=== PATIENT | male | born 1945 | race Asian ===

== ENCOUNTER 2017-01-12 22:32 | Inpatient (IN) ==
[2017-01-13] MEDS ORDERED: ONDANSETRON 4 MG/2 ML VIAL ONE ×2 (00:16→10:25)
[2017-01-13] MEDS ORDERED: HYDROmorphone 2 MG/1 ML VIAL IV STA (00:19)
[2017-01-13] MEDS ORDERED: PANTOPRAZOLE 40 MG VIAL IV STA (00:19)
[2017-01-13] MEDS ORDERED: ONDANSETRON 4 MG/2 ML VIAL IV STA (00:19)
[2017-01-13] MEDS ORDERED: SODIUM CHLORIDE 0.9% 1,000 ML IV STA (00:19)
[2017-01-13 00:28] LABS: Basophils % 0.3 % (0.0-0.8); Eosinophils # 0.2 10*3/uL (0.0-0.87); Eosinophils % 1.5 % (0.00-10.9); Hematocrit 44.3 VOL% (42.0-52.0); Hemoglobin 14.5 GM/DL (14.0-18.0); Immature Granulocytes % 0.4 %; Immature Granulocytes Absolute 0.05 #; Lymphocytes # 3.2 10*3/uL (1.4-4.0); Mean Corpuscular HGB Conc 32.7 GM/DL (32-36); Mean Corpuscular Hemoglobin 30 PG (27-34); Mean Corpuscular Volume 92.1 FL (87-102); Mean Platelet Volume 9.4 FL (9.6-12.0); Monocytes # 0.7 10*3/uL (0.11-0.8); Monocytes % 5.4 % (1.7-12.7); Neutrophils # 8.1 10*3/uL (1.4-7.4); Neutrophils % 66.4 % (38.7-73.9); Platelet Count 248 T/CUMM (130-400); Red Blood Count 4.81 MC/CUMM (3.8-5.5); Red Cell Distribution Width 13.5 % (9.3-17.3); White Blood Count 12.2 T/CUMM (4-12)
[2017-01-13 00:53] LABS: Albumin 3.9 G/DL (3.4-5.0); Bilirubin,Total 0.4 MG/DL (0.2-1.0); Calcium 8.7 MG/DL (8.5-10.1); Potassium 4.5 MMOL/L (3.5-5.1); Total Protein 7.6 G/DL (6.4-8.3); Troponin I Only 0.023 NG/ML (0.00-0.045)
--- NOTE | 2017-01-13 00:57 | Emergency Department Note ---
Margaret Merritt [place], am scribing for, and in the presence of, Javier Ray MD 00:41. Cory Merritt Charles R, MD, personally performed the services described in this documentation, ascribed by Willian Robles in my presence, and it is both accurate and complete . Arrival - Arrival Chief Complaint: Abdominal / Flank Pain Stated Complaint: Vomiting,unable to keep food down,stomach pain ED Nursing Triage Note: PT STATES THAT HE HAS BEEN VOMITING AND NAUSEATED SINCE YESTERDAY. STATES THAT HE HAS INCREASING ABD PAIN WELL. LAST NORMAL BM WAS TODAY. DENIES ANY FEVER OR URINARY S/S. PT COMPLAINS OF UMBILICAL PAIN AT TIME OF TRIAGE. STATES THAT IT ALSO DOES HURT IN LOWER ABD WELL. Mode of Arrival: Ambulatory Limitations: No Limitations Source: Patient Time Seen by Provider: 01/12/17 23:57 - History of Present Illness HPI Narrative: Pt is a 71 y/o male presenting to the ED with c/o nausea, vomiting, diarrhea that onset yesterday. Pt has some mild umbilical tenderness. Pt's has a PMHx of diverticulitis, heart bypass, thyroid disorder and diabetes. Pt states his bowel movements were dark in color and has not passed gas. He denies fever, chills, back pain, diaphoresis, DEJESUS, vision change, and urinary symptoms. Consistency: constant Severity: moderate Allergies/Adverse Reactions: Allergies Allergy/AdvReac Type Severity Reaction Status Date / Time No Known Allergies Allergy Verified 01/12/17 22:42 Review of System - Review of System 12 point system: reviewed and no additional remarkable complaints except as stated - Review of System Constitutional: Absent: chills, fever, weakness Eyes: Absent: vision change Head/Ears/Nose/Throat: Absent: earache, nasal drainage Respiratory: Absent: cough, respiratory distress, wheezing Cardiovascular: Absent: chest pain Gastrointestinal: Present: abdominal pain, nausea, vomiting, diarrhea Genitourinary male: Absent: dysuria Musculoskeletal: Absent: arm pain, back pain, neck pain Skin: Absent: rash Neurological: Absent: headache, weakness, confusion, abnormal gait, vertigo Psychiatric: Absent: anxiety Endocrine: Absent: fatigue Hematological/Lymphatic: Absent: easy bleeding Allergic/Immunologic: Absent: facial swelling Medical,Surgical,& Family Hx - Medical History Endocrine: History of: Diabetes Mellitus (NIDDM), Dyslipidemia, Thyroid Disorder Gastrointestinal: History of: Diverticulitis/ Diverticulosis - Surgical History Cardiac Surgeries: Sugical HX of: Femoral-Popliteal Bypass Graft, Cardiac Catheterization - Social History Smoking Status: Never smoker Frequency of Alcohol Use: None Type of Drug Use: None Exam Vital Signs: Vital Signs Temperature 98.5 F 01/12/17 22:42 Pulse Rate 82 01/12/17 22:42 Respiratory Rate 20 01/12/17 22:42 Blood Pressure 182/93 01/12/17 22:42 O2 Sat by Pulse Oximetry 98 01/12/17 22:42 - General General appearance: alert, in no apparent distress - Head Head exam: Present: atraumatic, normocephalic, normal inspection - Eye Eye exam: Present: normal appearance, PERRL, EOMI - ENT ENT exam: Present: normal exam, normal oropharynx, mucous membranes moist, TM's normal bilaterally, normal external ear exam - Neck Neck exam: Present: normal inspection, full ROM, trachea midline. Absent: tenderness - Chest Chest inspection: Present: normal inspection, symmetric chest wall rise - Respiratory Respiratory exam: Present: normal lung sounds bilaterally - Cardiovascular Cardiovascular exam: Present: regular rate, normal rhythm, normal heart sounds - Abdominal Exam Abdominal exam: Present: soft, tenderness (paraumbilicus tenderness), hypoactive bowel sounds. Absent: distention, normal bowel sounds - Rectal Exam Rectal exam: Present: heme (-) stool - Extremities Exam Extremities exam: Present: normal inspection, full ROM, normal capillary refill. Absent: tenderness, pedal edema, calf tenderness - Back Exam Back exam: Present: normal inspection, full ROM. Absent: tenderness - Neurological Exam Neurological exam: Present: alert, oriented X3, CN II-XII intact, normal gait, reflexes normal. Absent: motor sensory deficit - Psychiatric Psychiatric exam: Present: normal affect, normal mood - Skin Skin exam: Present: warm, dry, intact, normal color. Absent: rash, diaphoresis Course - Consultations Consultation #1: Dr. Gottlieb will admit patient Time: 02:11 Results - Labs CBC & BMP: 01/13/17 00:00 01/13/17 00:00 Lab Results: I have reviewed the patients labs Disposition Clinical Impression: Acute appendicitis, Abdominal pain Case discussed with: patient, patient's family Disposition: Still a Patient Condition: Stable Time of Disposition: :11
[2017-01-13] MEDS ORDERED: PANTOPRAZOLE 40 MG VIAL IV ONE (00:58)
[2017-01-13] MEDS ORDERED: HYDROmorphone 2 MG/1 ML VIAL ONE (00:58)
[2017-01-13 01:59] LABS: Apearance,Urine CLEAR (Clear); Bilirubin,Urine Negative (Negative); Blood, Urine Moderate mg/dL (Negative); Glucose,Urine (UA) Negative (Negative); Ketones,Urine 20 mg/dL (Negative); Mucus,Urine Occasional /LPF (Occasional); Nitrite,Urine Negative (Negative); Protein,Urine 100 MG/DL; RBC,Urine 27 /HPF (0-4); Urine Color Yellow (Yellow); Urine Specific Gravity 1.048 (1.001-1.035); Urine Urobilinogen < 2.0 EU/DL (0.2-1.0)
[2017-01-13 02:00] LABS: Lactic Acid 2.2 MMOL/L (0.4-2.0)
[2017-01-13] MEDS ORDERED: ONDANSETRON 4 MG/2 ML VIAL IV PRN (03:21)
[2017-01-13] MEDS ORDERED: DEXTROSE 50% 25 GM/50 ML VIAL IV PRN (03:21)
[2017-01-13] MEDS ORDERED: GLUCAGON 1 MG VIAL IM PRN (03:21)
[2017-01-13] MEDS ORDERED: ACETAMINOPHEN 325 MG TABLET PO PRN (03:21)
[2017-01-13] MEDS ORDERED: HYDROmorphone 2 MG/1 ML VIAL IV PRN (03:21)
[2017-01-13] MEDS: SODIUM CHLORIDE 0.9% 1,000 ML IV SCH ×3 (03:25→21:12)
[2017-01-13] MEDS: PIPERACILLIN/TAZOBACTAM 3,375 MG in SODIUM CHLORIDE 0.9% 100 ML IV SCH ×3 (05:17→21:13)
--- NOTE | 2017-01-13 07:44 | CT Report ---
CT abdomen pelvis w con Indication: Midline abdominal/pelvic pain Comparison: Prior CT abdomen and pelvis 04/13/2014. Technique: CT of the abdomen and pelvis was performed following administration of intravenous contrast. Coronal and sagittal reformatted images were additionally created and submitted for review. The total DLP is 377 mGy*cm. Findings: Very minimal posterior basilar dependent atelectatic changes are noted bilaterally. Lung bases are otherwise clear. There is no pleural or pericardial effusion. ABDOMEN: Liver/Gallbladder: No abnormal enhancing hepatic lesions are identified. There is no biliary ductal dilatation. There has been a prior cholecystectomy. The portal vein is patent. Spleen: No acute findings. Pancreas: Adjacent to the pancreatic head and within the pancreaticoduodenal groove, there is haziness of the pancreatic fat/periduodenal fat and may represent a focal inflammatory change such as pancreatitis or duodenitis. The pancreatic duct is not dilated. Adrenals: Within normal limits in appearance. Kidneys: Both kidneys enhance symmetrically with symmetric excretion on delayed images. On the initial images, there are 2 areas of focal hyperdensity within the left renal collecting system likely representing stones measuring 8-9 mm in size. Bowel/mesentery: In the right lower quadrant, the appendix is top normal in size measuring 7 mm diameter. There is minimal enhancement of the appendix mucosa/wall but there is no significant periappendiceal fat stranding or free fluid at this time. Small bowel is nondilated. There is no free fluid/air within the abdomen. There is no mesenteric adenopathy. A few scattered distal colon diverticula are noted. There is no CT evidence of acute diverticulitis. Retroperitoneum: No evidence of aortic aneurysm or significant retroperitoneal adenopathy. Distal aorta demonstrates circumferential atherosclerotic plaque with mild luminal narrowing evident (Luminal stenosis of 50%). PELVIS: No free fluid. There is mild diffuse bladder wall thickening, which is nonspecific. Prostate appears unremarkable. There is no adenopathy. BONES: No acute or suspicious osseous abnormalities are identified. Median sternotomy wiring is partially imaged IMPRESSION: 1. Findings suspicious for pancreatitis or duodenitis. Correlate with serum amylase and lipase. 2. Appendix is top normal size and an early uncomplicated acute appendicitis cannot be excluded pericolic clinically. 3. Otherwise, no acute abnormality within the abdomen/pelvis to explain patient's symptoms. 4. Minimal diverticulosis and probable left renal calculi. 01/13/2017 7:31 AM PROCEDURE INTERPRETED AT [facility] DEPARTMENT OF RADIOLOGY Final Report Signed by: Jin Pisano
--- NOTE | 2017-01-13 07:46 | XRay Report ---
Exam: XR chest 1V portable Indication: Abdominal pain Comparison study: March 17, 2013 Findings: The heart, mediastinum and bony structures are stable from prior. Central perihilar interstitial prominence is noted which appears similar to prior and likely represents underlying scarring. There is no focal consolidation, pneumothorax or pleural effusion identified. Median sternotomy wiring is noted. Impression: No acute cardiopulmonary process. Similar chronic interstitial changes. Probable basilar atelectasis. PROCEDURE INTERPRETED AT [facility] DEPARTMENT OF RADIOLOGY Final Report Signed by: Jin Pisano
[2017-01-13] MEDS ORDERED: FAMOTIDINE 20 MG/2 ML VIAL IV ONE (08:22)
--- NOTE | 2017-01-13 08:50 | EKG Report ---
Stationary ECG Study [facility] Test Date: 01/13/2017 8:49:08 AM Pat Name: FRIDA BARRIOS Department: Room: 338 Gender: M Switchman: SARAH : 1945 Requested by: Scotty Santana Order Number: [id number] Reading MD: KALPESH MALDONADO Intervals [place] Rate: 61 P: 71 RI: 183 QRS: 91 QRSD: 85 T: -56 QT: 438 QTc: 441 Interpretive Statements SINUS RHYTHM@61BPM BORDERLINE RIGHT AXIS DEVIATION ST DEVIATION AND MODERATE T-WAVE ABNORMALITY, CONSIDER LVO vs ISCHEMIA Electronically Signed On 01-16-17 13:06:36 CHUTE BUILDER by KALPESH MALDONADO [email or web address]
--- NOTE | 2017-01-13 09:11 | General Surg History&Physical ---
Assessment and Plan (1) Acute appendicitis Status: Acute Assessment and plan: Impression: Early acute appendicitis Plan: I reviewed the laboratory work as well as the CT images and report. CT revealed an enlarged appendix. Is also a question of pancreatitis/duodenitis. His lipase is normal. White blood cell count is slightly elevated. I suspect he has early acute appendicitis. I discussed treatment options with him and he wants to proceed with appendectomy. We discussed the risk of the procedure including bleeding, infection, damage to surrounding structures, leaking at the staple line, need for further surgery in detail. Also discussed the possibility of a nontherapeutic procedure. He wants to proceed as soon as possible. Current Visit: Yes History of Present Illness Chief complaint: abdominal pain History of present illness: Mr. Garza is a 71 year old male admitted to me with a diagnosis of acute appendicitis. Patient states he began having pain in the periumbilical region on . It has migrated to the right lower quadrant. He's also had associated nausea and vomiting. He's had fairly normal bowel movements but his last one was some diarrhea. He is not appear toxic. Patient is known to me. His pain is described as an aching dull pain in the right lower quadrant. He does not have any pain in the upper abdomen or left lower quadrant. Home Medications Medication Instructions Recorded Confirmed Type Atorvastatin [Lipitor] 80 mg PO BEDTIME 01/13/17 01/13/17 History Glimepiride [Glimepiride] 1 tablet PO BID 01/13/17 01/13/17 History Glyburide/Metformin HCl 2 tablet PO BID 01/13/17 01/13/17 History [Glyburide-Metformin 5-500 mg] Thyroid,Pork [[place] Thyroid] 1 tablet PO DAILY 01/13/17 01/13/17 History Allergies Allergy/AdvReac Type Severity Reaction Status Date / Time No Known Allergies Allergy Verified 01/12/17 22:42 Medical,Surgical,& Family Hx - Medical History Endocrine: History of: Diabetes Mellitus (NIDDM), Dyslipidemia, Thyroid Disorder Gastrointestinal: History of: Diverticulitis/ Diverticulosis - Surgical History Cardiac Surgeries: Sugical HX of: Femoral-Popliteal Bypass Graft, Cardiac Catheterization - Social History Smoking Status: Never smoker Frequency of Alcohol Use: None Type of Drug Use: None Exam - Constitutional Vitals: Period Temp Pulse Resp BP Sys/Willoughby Pulse Ox Last 24 Hr 98.6 F 62-66 16-20 134-152/65-73 96-98 General appearance: no acute distress - Head Head exam: Present: normocephalic - ENT Mouth exam: Present: normal external inspection - Neck Neck exam: Present: normal inspection - Respiratory Respiratory exam: Present: clear to auscultation bilaterally - Cardiovascular Cardiovascular exam: Present: RRR - GI/Abdominal GI/Abdominal exam: Present: soft (tender to palpation in the right lower quadrant. No rebound. No Rovsing.) - Extremities Exam Extremities exam: Present: normal inspection - Back Exam Back exam: Present: normal inspection - Neurological Exam Neurological exam: Present: alert, oriented X3 Speech: Present: normal - Skin Skin exam: Present: normal color 12 point system: reviewed and no additional remarkable complaints except as stated Results - Labs CBC & BMP: 01/13/17 00:00 01/13/17 00:00 Lab Results: I have reviewed the past 24 hour labs
[2017-01-13] MEDS: INSULIN REGULAR 100 UNIT/ML SUBCUT SCH ×4 (09:23→17:28)
[2017-01-13] MEDS: PANTOPRAZOLE 40 MG VIAL IV SCH (09:24)
[2017-01-13] MEDS ORDERED: BUPIVACAINE MPF 0.25% /EPI 30 ML VIAL ONE (09:54)
[2017-01-13] MEDS ORDERED: LIDOCAINE 1%/EPI INJ 20 ML VIAL ONE (09:55)
[2017-01-13] MEDS ORDERED: TISSUE ADHESIVE 1 EACH APPLICATOR TOP ONE (09:56)
[2017-01-13 10:15] LABS: Albumin 3.4 G/DL (3.4-5.0); Bilirubin,Total 0.7 MG/DL (0.2-1.0); Calcium 8.1 MG/DL (8.5-10.1); Osmolality,Calculated 286.8 MOS/KG (273-304); Potassium 4.7 MMOL/L (3.5-5.1); Total Protein 6.6 G/DL (6.4-8.3)
[2017-01-13] MEDS ORDERED: ROCURONIUM 100 MG/10 ML VIAL IV ONE (10:25)
[2017-01-13] MEDS ORDERED: NEOSTIGMINE 10 MG/10 ML VIAL ONE (10:25)
[2017-01-13] MEDS ORDERED: KETOROLAC 30 MG/1 ML VIAL ONE (10:25)
[2017-01-13] MEDS ORDERED: PHENYLEPHRINE 1 MG/10 ML SYRINGE IV ONE (10:25)
[2017-01-13] MEDS ORDERED: GLYCOPYRROLATE 0.4 MG/2 ML VIAL ONE (10:25)
[2017-01-13] MEDS ORDERED: LIDOCAINE 1% 5 ML VIAL ONE (10:25)
[2017-01-13] MEDS ORDERED: DEXAMETHASONE 10 MG/1 ML VIAL ONE (10:25)
[2017-01-13] MEDS ORDERED: PROPOFOL 200 MG/20 ML VIAL IV ONE (10:25)
--- NOTE | 2017-01-13 11:16 | Anesthesia ---
Anesthesia Post OP - Post Ansesthetic Evaluation Patient seen in post op: Yes Resp: within normal limits CV: within normal limits Mental: within normal limits Temp: within normal limits Snke-[id number]-Gxtpofark: within normal limits Nausea and Vomiting: within normal limits Pain: within normal limits
[2017-01-13] MEDS ORDERED: fentaNYL 100 MCG/2 ML VIAL ONE (11:26)
[2017-01-13] MEDS ORDERED: ACETAMINOPHEN 1,000 MG/100 ML VIAL IV ONE (11:26)
[2017-01-13] MEDS ORDERED: MIDAZOLAM 2 MG/2 ML VIAL ONE (11:26)
[2017-01-13] MEDS ORDERED: SEVOFLURANE 1 UNIT/15 MINUTE INH ONE (11:27)
--- NOTE | 2017-01-13 12:14 | Hospitalist Consult Note ---
Assessment and Plan (1) Acute appendicitis Status: Acute Assessment and plan: s/p appy Current Visit: Yes (2) Diabetes Status: Acute Assessment and plan: isc, cont amaryl, hold metformin due to ct Current Visit: Yes (3) Hyperlipidemia Status: Acute Assessment and plan: Continue Lipitor 80 mg at bedtime Current Visit: Yes (4) Hypothyroidism Status: Acute Assessment and plan: Continue thyroid medicine Current Visit: Yes History of Present Illness - Data of Consult Consult date: 01/13/17 Requesting Physician: Keanu العراقي Primary care physician: Oli Quesada - Consult Narrative Reason for consult: Medical management of diabetes History of present illness: Mr. Garza is a 71 year old male who presented to the emergency room with nausea vomiting and abdominal pain. He started feeling bad and was nauseated on and the vomiting discontinued. His abdominal pain got significantly worse which brought him into the emergency room. He was noted on CT to have pancreatitis or duodenitis, but his symptoms were consistent with appendicitis. Patient will have an appendectomy by Dr. العراقي today. CC: Keanu العراقي MD - Home Medications and Allergies Home Medications: Home Medications Medication Instructions Recorded Confirmed Type Atorvastatin [Lipitor] 80 mg PO BEDTIME 01/13/17 01/13/17 History Glimepiride [Glimepiride] 1 tablet PO BID 01/13/17 01/13/17 History Glyburide/Metformin HCl 2 tablet PO BID 01/13/17 01/13/17 History [Glyburide-Metformin 5-500 mg] Thyroid,Pork [[place] Thyroid] 1 tablet PO DAILY 01/13/17 01/13/17 History Allergies/Adverse Reactions: Allergies Allergy/AdvReac Type Severity Reaction Status Date / Time No Known Allergies Allergy Verified 01/12/17 22:42 Medical,Surgical,& Family Hx - Medical History Endocrine: History of: Diabetes Mellitus (NIDDM), Dyslipidemia, Thyroid Disorder Gastrointestinal: History of: Diverticulitis/ Diverticulosis - Surgical History Cardiac Surgeries: Sugical HX of: Femoral-Popliteal Bypass Graft, Cardiac Catheterization Abdominal Surgeries: Surgical HX of: Cholecystectomy Additional Surgical History: Hemorrhoid surgery - Family History Family History: Reports;: Family Heart Disease - Social History Smoking Status: Former smoker Frequency of Alcohol Use: None Type of Drug Use: None Marital Status: Lives With:: Spouse Functional capacity: independent ambulation - Constitutional Constitutional: Present: fatigue. Absent: headache(s) - EENT Eyes: Absent: blurry vision, diplopia Ears: Absent: decreased hearing, ear discharge Nose, mouth and throat: Absent: headache(s), sore throat - Cardiovascular Cardiovascular: Absent: chest pain at rest, dyspnea, edema - Respiratory Respiratory: Absent: cough, dyspnea - Gastrointestinal Gastrointestinal: Present: abdominal pain, nausea, vomiting - Genitourinary Genitourinary: Absent: difficulty urinating, dysuria - Neurological Neurological: Absent: headache(s), syncope - Psychiatric Psychiatric: Present: depression. Absent: anxiety - Endocrine Endocrine: Present: fatigue. Absent: cold intolerance - Hematologic/Lymphatic Hematologic/Lymphatic: Absent: easy bleeding, easy bruising Exam - Constitutional Vitals: Period Temp Pulse Resp BP Sys/Willoughby Pulse Ox Last 24 Hr 97.0 F-98.6 F 58-79 16-20 105-152/49-73 96-100 General appearance: normal weight, mild distress - Head Head exam: Present: normal inspection, normocephalic - Eye Eye exam: Present: EOMI. Absent: scleral icterus Pupils: Present: SANCHEZ, normal accommodation - ENT ENT exam: Present: normal exam, normal external ear exam - Neck Neck exam: Absent: lymphadenopathy, thyromegaly - Respiratory Respiratory exam: Present: clear to auscultation bilaterally. Absent: rhonchi, wheezes - Cardiovascular Cardiovascular exam: Present: regular rate and rhythm. Absent: systolic murmur - GI/Abdominal GI/Abdominal exam: Present: hypoactive bowel sounds, tenderness, soft - Extremities Exam Extremities exam: Present: normal inspection, normal capillary refill - Neurological Exam Neurological exam: Present: alert, oriented X3, CN II-XII intact, reflexes normal. Absent: motor sensory deficit - Psychiatric Psychiatric exam: Present: normal affect, normal mood - Skin Skin exam: Present: normal color, warm Results - Labs CBC & BMP: 01/13/17 00:00 01/13/17 09:30 Lab Results: I have reviewed the past 24 hour labs
[2017-01-13 13:11] LABS: Basophils % 0.2 % (0.0-0.8); Eosinophils % 0.4 % (0.00-10.9); Hematocrit 39.2 VOL% (42.0-52.0); Hemoglobin 12.6 GM/DL (14.0-18.0); Immature Granulocytes % 0.2 %; Immature Granulocytes Absolute 0.02 #; Lymphocytes # 2.8 10*3/uL (1.4-4.0); Lymphocytes % 30.6 % (21.2-54.2); Mean Corpuscular HGB Conc 32.1 GM/DL (32-36); Mean Corpuscular Hemoglobin 30 PG (27-34); Mean Corpuscular Volume 93.3 FL (87-102); Mean Platelet Volume 9.9 FL (9.6-12.0); Monocytes # 0.6 10*3/uL (0.11-0.8); Monocytes % 5.9 % (1.7-12.7); Neutrophils # 5.8 10*3/uL (1.4-7.4); Neutrophils % 62.7 % (38.7-73.9); Platelet Count 246 T/CUMM (130-400); Red Cell Distribution Width 13.6 % (9.3-17.3); White Blood Count 9.3 T/CUMM (4-12)
--- NOTE | 2017-01-13 14:01 | Operative Note ---
Date of procedure: 01/13/17 Pre-op diagnosis: acute appendicitis Post-op diagnosis: same (hyperemic appearance of the appendix) Procedure: Procedure performed: Laparoscopic appendectomy next Procedure in detail: After informed consent was obtained, the patient was taken operating suite and laid supine on the operating table. After general anesthesia was induced a Rodriguez catheter placed and the abdomen was prepped and draped in usual sterile fashion. After procedural pause local anesthetic infiltrated in the skin and subcutaneous tissue above the umbilicus. Incision was made and dissection carried down through skin and soft tissue. Fascia was grasped with [place]'s and elevated. Fascial incision was made and the abdominal cavity entered bluntly. Finger sweep revealed no adhesions. Murillo trocar was placed under visualization. Pneumoperitoneum achieved. The camera was inserted and bowel mesentery were inspected found be free of any violation. Placed in Trendelenburg position and rotated to the left. 5 mm suprapubic and left lower quadrant trochars were placed under visualization. Camera was moved to the left lower quadrant. There were some slight adhesions to the cecum to the anterior abdominal wall. Identified the appendix and it appeared hyperemic and mildly dilated. There was not a lot of surrounding inflammation of the mesentery. A window was created at the base of the appendix and the mesentery and the appendiceal base was transected using a MARJORIE stapling device with a vascular load. Mesoappendix was transected in same fashion. Staple lines inspected found be intact no leakage of sanguinous or any succus-appearing fluid. There was excellent hemostasis. The appendix was placed in an Endo Catch sac and removed through the Murillo trocar site. There were no other areas of inflammation identified in the abdomen or pelvis and the bowel all appeared normal. The trochars were removed as the abdomen desufflated. Fascia at the Murillo trocar site closed using 0 Vicryl [id number]-[id number] interrupted suture. Wounds were irrigated and suction. Skin closed with edward. Sterile dressings applied. Patient was asked by recovery room in stable condition. All lap and needle counts were correct at the end of the case. Anesthesia: GETA Surgeon / Physician: Keanu العراقي Estimated blood loss: other (less than 10 mL) Specimens: other (appendix) Condition: stable Disposition: PACU Results - Labs CBC & BMP: 01/13/17 09:30 01/13/17 09:30 Discharge Plan - Discharge Medications No Action Atorvastatin [Lipitor] 80 mg PO BEDTIME Glyburide/Metformin HCl [Glyburide-Metformin 5-500 mg] 2 tablet PO BID Glimepiride [Glimepiride] 1 tablet PO BID Thyroid,Pork [[place] Thyroid] 1 tablet PO DAILY - Follow Up or Referral - Forms/Instructions
[2017-01-13] MEDS: THYROID 60 MG TABLET PO SCH (14:35)
[2017-01-13] MEDS ORDERED: ATORVASTATIN 40 MG TABLET PO SCH (21:00)
[2017-01-14] MEDS: INSULIN REGULAR 100 UNIT/ML SUBCUT SCH ×3 (01:46→13:08)
[2017-01-14] MEDS: PIPERACILLIN/TAZOBACTAM 3,375 MG in SODIUM CHLORIDE 0.9% 100 ML IV SCH ×2 (05:10→13:08)
[2017-01-14] MEDS: SODIUM CHLORIDE 0.9% 1,000 ML IV SCH ×2 (05:10→11:50)
[2017-01-14] MEDS ORDERED: GLIMEPIRIDE 2 MG TABLET PO SCH (08:00)
[2017-01-14] MEDS: THYROID 60 MG TABLET PO SCH (09:20)
[2017-01-14] MEDS: PANTOPRAZOLE 40 MG VIAL IV SCH (09:20)
--- NOTE | 2017-01-14 11:46 | Discharge Summary ---
Diagnosis - Discharge Diagnosis (1) Acute appendicitis Status: Acute Specialty Discharge - Follow Up or Referrals Follow up with: Keanu العراقي MD [Physician] - (Call office Sunday to make a 2 week follow up appointment) Discharge Plan - Discharge Medications New HYDROcodone/ACETAMIN 7.5-325 [[place] 7.5-325] 1 tablet PO Q4H PRN #40 tablet PRN Reason: Pain Moderate (4-7) Continue Atorvastatin [Lipitor] 80 mg PO BEDTIME Glyburide/Metformin HCl [Glyburide-Metformin 5-500 mg] 2 tablet PO BID Glimepiride 1 tablet PO BID Thyroid,Pork [[place] Thyroid] 1 tablet PO DAILY - Follow Up or Referral Follow Up: Keanu العراقي MD [Physician] - (Call office Sunday to make a 2 week follow up appointment) - Forms/Instructions Instructions: Laparoscopic Appendectomy (DC) Exam - Constitutional Vitals: Period Temp Pulse Resp BP Sys/[place]ough[place] Pulse Ox Last 24 Hr 97.0 F-98.2 F 58-65 17-19 116-144/63-74 94-99 Discharge Results Procedures and tests throughout hospitalization: Pending Orders 01/13/17 12:36 Blood Culture Stat Labs on day of discharge: Labs from last 24 hours 01/14/17 01/14/17 01/13/17 05:25 01:22 16:23 WBC RBC Hgb Hct MCV MCH MCHC RDW Plt Count MPV Neut % (Auto) Lymph % (Auto) Mora % (Auto) Eos % (Auto) Baso % (Auto) Neut # (Auto) Lymph # (Auto) Mora # (Auto) Eos # (Auto) Baso # (Auto) Immature Gran % Nucleated RBC % Immature Gran # Nucleated RBCs # POC Glucose 93 75 108 H 01/13/17 01/13/17 12:02 09:30 WBC 9.3 RBC 4.20 Hgb 12.6 L Hct 39.2 L MCV 93.3 MCH 30 MCHC 32.1 RDW 13.6 Plt Count 246 MPV 9.9 Neut % (Auto) 62.7 Lymph % (Auto) 30.6 Mora % (Auto) 5.9 Eos % (Auto) 0.4 Baso % (Auto) 0.2 Neut # (Auto) 5.8 Lymph # (Auto) 2.8 Mora # (Auto) 0.6 Eos # (Auto) 0.0 Baso # (Auto) 0.0 Immature Gran % 0.2 Nucleated RBC % 0.0 Immature Gran # 0.02 Nucleated RBCs # 0.00 POC Glucose 82 DS: Provider Date of admission: 01/13/17 02:12 Primary care physician: . No PCP Attending physician on admission: Keanu العراقي MD Consults: 01/13/17 03:21 Consult to Physician [CONS] Routine Comment: medical management diabetes Consulting Provider: Kate Little When should Consulting Provider be notified: In am Person Notified: Dr. Little Date Notified: 01/13/17 Time Notified: 09:30 Discharging clinician: Keanu العراقي MD
--- NOTE | 2017-01-14 11:48 | Hospitalist Progress Note ---
Assessment and Plan (1) Acute appendicitis Status: Acute Assessment and plan: s/p appy Current Visit: Yes (2) Diabetes Status: Acute Assessment and plan: isc, cont amaryl, may restart metformin tomorrow Current Visit: Yes (3) Hyperlipidemia Status: Acute Assessment and plan: Continue Lipitor 80 mg at bedtime Current Visit: Yes (4) Hypothyroidism Status: Acute Assessment and plan: Continue thyroid medicine Current Visit: Yes Hospitalist: Subjective Interval history: Patient looks good today. He will be going home. Exam - Constitutional Vitals: Period Temp Pulse Resp BP Sys/Willoughby Pulse Ox Last 24 Hr 97.0 F-98.2 F 58-65 17-19 116-144/63-74 94-99 Exam: Heart Rate-[RRR] Lungs-[CTAB] GI-[+bs soft, tender] Ext-[no edema] Results - Labs CBC & BMP: 01/13/17 09:30 01/13/17 09:30 Lab Results: I have reviewed the past 24 hour labs Specialty Discharge - Follow Up or Referrals Follow up with: Keanu العراقي MD [Physician] - (Call office Sunday morning to make a 2 week follow up appointment)
--- NOTE | 2017-01-14 12:16 | Event Note ---
Afebrile vital signs stable. Previous right lower quadrant pain has resolved. Is mildly sore at the incisions. Overall he feels well. He is tolerating diet. His abdomen is soft and appropriately tender. Incisions look good. He wants to go home. Will discharge home and have follow-up in 2 weeks. Instructed to return for any nausea vomiting diarrhea worsening abdominal pain or distention, fever, redness or drainage from the incisions. Rx for [place] given.
[2017-01-14 14:39] VITALS: BP 122/70
--- NOTE | 2017-01-15 13:03 | Pathology Report from [facility] ---
ACCESSION # : [id number] PATIENT NAME : Sunny Garza ORDERING DR : Keanu العراقي MD CLINICAL HX: Acute appendicitis POST-OP DX: Same SPECIMEN INFO: Appendix GROSS DESCRIPTION: Received in formalin labeled "SUNNY GARZA" is an appendix and attached appendiceal fat measuring 5 x 0.7 cm. The cut surfaces are unremarkable with no perforations or fecaliths identified. Admissions Nurse sections are submitted in one cassette. DIAGNOSIS FOR SUNNY GARZA: APPENDIX, APPENDECTOMY: Fibrous obliteration of the distal appendix, congestion, chronic inflammation. SERVICE DATE: 01/14/2017 REPORT DATE: 01/15/2017 PATHOLOGIST: Sofia Malagon M.D. [facility]
== END 2017-01-14 13:15 | disposition home or self-care (01) | DRG 343 ==
LOC: N.ED 22:32 → N.EDINP 01-13 02:12 → N.3E 01-13 02:44
PROVIDERS: ADMIT Surgery; ATTEND Surgery